=== PATIENT | male | born 1970 | race Caucasian/White ===

== ENCOUNTER 2018-07-21 19:42 | Emergency (ER) | payer MEDICAID ==
[~2018-07-21] VITALS: Ht 182.9 cm; Wt 140.4 kg
[2018-07-21 19:53] LABS: GLUCOSE,POINT OF CARE 302 MG/DL (70-110)
[2018-07-21] MEDS ORDERED: FOLI1 PO (19:53)
[2018-07-21] MEDS ORDERED: METF-960 PO (19:53)
[2018-07-21] MEDS ORDERED: TRAZ-220 PO (19:53)
[2018-07-21] MEDS ORDERED: AMLO-512 PO (19:53)
[2018-07-21] MEDS ORDERED: THIA100T67 PO (19:53)
[2018-07-21] MEDS ORDERED: LISI-662 PO (19:53)
[2018-07-21] MEDS ORDERED: AMOXICILLIN TRIHYDRATE 250 MG CAPSULE PO ONE (21:00)
[2018-07-21 21:02] VITALS: BP 149/91
== END 2018-07-21 21:04 | disposition home or self-care (01) ==
LOC: EMS 19:43
DX: H66.92 Otitis media, unspecified, left ear (principal); K04.7 Periapical abscess without sinus; F41.9 Anxiety disorder, unspecified; E11.9 Type 2 diabetes mellitus without complications; I10 Essential (primary) hypertension; F17.210 Nicotine dependence, cigarettes, uncomplicated; F12.90 Cannabis use, unspecified, uncomplicated; F19.90 Other psychoactive substance use, unspecified, uncomplicated; Z79.899 Other long term (current) drug therapy; Z79.84 Long term (current) use of oral hypoglycemic drugs
CPT/HCPCS: 99283